=== PATIENT | female | born 1970 | race Caucasian/White ===

== ENCOUNTER 2016-10-01 13:39 | Inpatient (IN) | payer MEDICAID ==
[~2016-10-01] VITALS: Ht 167.6 cm; Wt 109.3 kg
[2016-10-01] MEDS ORDERED: LORAZEPAM 2MG/ML CPJ ONE (14:01)
[2016-10-01] MEDS ORDERED: LORAZEPAM 2MG/ML CPJ IV ONE (14:15)
[2016-10-01 15:52] LABS: BASOPHILS % 0.9 % (0.0-2.0); EOSINOPHILS % 1.2 % (0.0-5.0); HEMATOCRIT. 38.9 % (36.0-48.0); HEMOGLOBIN. 13.3 g/dL (12.0-16.0); LYMPHOCYTES % 24.9 % (20.0-50.0); MEAN CORPUSCULAR HEMOGLOBIN 31.4 pg (28.0-32.0); MEAN CORPUSCULAR HGB CONC 34.3 g/dL (31.0-37.0); MEAN CORPUSCULAR VOLUME 91.5 fL (81.0-99.0); MEAN PLATELET VOLUME 6.8 fl (7.4-10.4); MONOCYTES % 7.3 % (2.0-8.0); NEUTROPHILS % 65.7 % (40.0-76.0); PLATELET 199 x1000/uL (130-400); RED BLOOD CELL COUNT 4.25 mill/uL (4.2-5.4); WHITE BLOOD COUNT 6.3 x1000/uL (4.5-11.0)
[2016-10-01 16:03] LABS: ALANINE AMINOTRANSFERASE 40 IU/L (13-61); ALBUMIN 3.1 g/dL (3.4-5.0); ANION GAP 11; CARBON DIOXIDE 27 mEq/L (21-32); CHLORIDE 106 mEq/L (98-107); ETHANOL BLOOD < 10 mg/dL; INDEX HEMOLYSI 1 (1-3); INDEX ICTERIC 1 (1-4); INDEX LIPEMIC 1 (1-3); PHENYTOIN 1.6 ug/mL (10-20); UREA NITROGEN BLOOD 6 mg/dL (7-21); eGFR > 60 mL/min (>60)
[2016-10-01 16:06] LABS: VALPROIC ACID < 3.0 ug/mL (50-100)
[2016-10-01] MEDS ORDERED: ONDANSETRON HCL 4MG/2ML VIAL IV ONE (16:15)
[2016-10-01] MEDS ORDERED: MORPHINE SULFATE 4 MG/ML CPJ (NOT FOR IM USE) IV ONE (16:15)
[2016-10-01 16:31] LABS: CLARITY URINE CLEAR (CLEAR); COLOR URINE YELLOW (YELLOW); GLUCOSE URINE NEGATIVE (NEGATIVE); KETONES URINE NEGATIVE (NEGATIVE); LEUKOCYTE ESTERASE URINE NEGATIVE (NEGATIVE); NITRITE URINE NEGATIVE (NEGATIVE); OCCULT BLOOD URINE NEGATIVE (NEGATIVE); PH URINE 5.5 (4.5-8.0); PROTEIN URINE NEGATIVE (NEGATIVE); SPECIFIC GRAVITY URINE 1.011 (1.005-1.030)
[2016-10-01 16:52] LABS: *AMPHETAMINES SCREEN URINE NEGATIVE (NEGATIVE); *COCAINE SCREEN URINE NEGATIVE (NEGATIVE); CANNABINOID URINE SCREEN NEGATIVE (NEGATIVE); ECSTASY MDMA SCREEN URINE NEGATIVE (NEGATIVE); METHADONE URINE SCREEN NEGATIVE (NEGATIVE); OPIATES URINE SCREEN NEGATIVE (NEGATIVE); PHENCYCLIDINE URINE SCREEN NEGATIVE (NEGATIVE)
[2016-10-01 17:01] LABS: *BARBITURATES SCREEN URINE PRESUMTIVE POSITIVE (NEGATIVE); *BENZODIAZEPINES SCREEN URINE PRESUMTIVE POSITIVE (NEGATIVE)
[2016-10-01] MEDS ORDERED: MAGNESIUM/ALUMINUM HYDROXIDE/SIMETHICONE 30ML UDC PO PRN (18:00)
[2016-10-01] MEDS ORDERED: ONDANSETRON HCL 4MG/2ML VIAL IV PRN (18:00)
[2016-10-01] MEDS ORDERED: ACETAMINOPHEN 325MG TABLET PO PRN (18:00)
[2016-10-01] MEDS ORDERED: CLONIDINE 0.1MG TABLET PO PRN (18:00)
[2016-10-01] MEDS ORDERED: IPRATROPIUM/ALBUTEROL 0.5-3(2.5)MG/3ML NEB INH PRN (18:00)
[2016-10-01 18:49] LABS: CHLORIDE 106 mEq/L (98-107); INDEX HEMOLYSI 1 (1-3); INDEX ICTERIC 1 (1-4); INDEX LIPEMIC 1 (1-3)
[2016-10-01] MEDS: HYDROCODONE/ACETAMINOPHEN 5/325MG TABLET PO PRN ×2 (18:49→23:35)
[2016-10-01 18:54] LABS: ANION GAP 11; CALCIUM 8.6 mg/dL (8.5-10.1); CARBON DIOXIDE 27 mEq/L (21-32); UREA NITROGEN BLOOD 8 mg/dL (7-21); eGFR > 60 mL/min (>60)
[2016-10-01] MEDS ORDERED: PHENYTOIN SODIUM 1,000 MG in SODIUM CHLORIDE 0.9% 100 ML IV ONE (19:59)
[2016-10-01 22:14] LABS: CREATINE KINASE 41 IU/L (26-192); CREATINE KINASE MB FRACTION < 0.5 ng/mL (0.5-3.6); INDEX HEMOLYSI 2 (1-3); TROPONIN I < 0.02 ng/mL (0.00-0.04)
[2016-10-01] MEDS ORDERED: AMIT100T2 PO (22:46)
[2016-10-01] MEDS ORDERED: PHEN100C4 PO (22:46)
[2016-10-01] MEDS ORDERED: LACO100T2 PO (22:46)
[2016-10-01] MEDS ORDERED: LEVE1000 PO (22:46)
[2016-10-01] MEDS ORDERED: PHENOBARBITAL PO (22:46)
[2016-10-01] MEDS ORDERED: CLON1TAB PO (22:46)
[2016-10-01] MEDS ORDERED: AMIT150T PO (22:46)
[2016-10-01] MEDS ORDERED: QUET300T2 PO (22:46)
[2016-10-01] MEDS: LORAZEPAM 2MG/ML CPJ IV PRN (23:46)
[2016-10-02] VITALS (7 sets, daily range): BP systolic 110–161; BP diastolic 66–94
[2016-10-02] MEDS: LEVETIRACETAM 500MG TABLET PO SCH ×3 (00:10→21:25)
[2016-10-02] MEDS: CLONAZEPAM 1MG TABLET PO SCH ×3 (00:10→17:29)
[2016-10-02] MEDS: PHENOBARBITAL 30 MG TABLET PO SCH ×3 (00:11→21:25)
[2016-10-02] MEDS: LACOSAMIDE 200 MG TABLET (VIMPAT) PO SCH ×3 (01:21→17:29)
[2016-10-02] MEDS: QUETIAPINE FUMARATE 100MG TABLET PO SCH ×3 (01:21→21:29)
[2016-10-02] MEDS: HYDROCODONE/ACETAMINOPHEN 5/325MG TABLET PO PRN (05:03)
[2016-10-02 05:52] LABS: BASOPHILS % 0.6 % (0.0-2.0); EOSINOPHILS % 2.1 % (0.0-5.0); HEMATOCRIT. 36.3 % (36.0-48.0); HEMOGLOBIN. 12.6 g/dL (12.0-16.0); LYMPHOCYTES % 37.1 % (20.0-50.0); MEAN CORPUSCULAR HGB CONC 34.7 g/dL (31.0-37.0); MEAN CORPUSCULAR VOLUME 92.1 fL (81.0-99.0); MEAN PLATELET VOLUME 7.1 fl (7.4-10.4); MONOCYTES % 8.9 % (2.0-8.0); NEUTROPHILS % 51.3 % (40.0-76.0); PLATELET 187 x1000/uL (130-400); RED BLOOD CELL COUNT 3.95 mill/uL (4.2-5.4); WHITE BLOOD COUNT 4.8 x1000/uL (4.5-11.0)
[2016-10-02 06:27] LABS: CREATINE KINASE 27 IU/L (26-192); CREATINE KINASE MB FRACTION < 0.5 ng/mL (0.5-3.6); HDL CHOLESTEROL 31 mg/dL (40-59); INDEX HEMOLYSI 2 (1-3); INDEX ICTERIC 1 (1-4); INDEX LIPEMIC 1 (1-3); LDL CHOLESTEROL 39 mg/dL (5-100); TRIGLYCERIDE 422 mg/dL (0-150); TROPONIN I < 0.02 ng/mL (0.00-0.04)
[2016-10-02] MEDS: ENOXAPARIN 30MG/0.3ML SYR SUBCUT SCH ×2 (09:00→21:26)
[2016-10-02] MEDS ORDERED: PHENYTOIN SODIUM EXTENDED 100MG CAPSULE PO SCH (09:00)
[2016-10-02] MEDS: AMITRIPTYLINE 50MG TABLET PO SCH ×2 (10:16→21:25)
[2016-10-02 10:23] LABS: PHENOBARBITAL 11.1 ug/mL (15.0-40.0); PHENYTOIN 6.1 ug/mL (10-20)
[2016-10-02] MEDS ORDERED: PNEUMOCOCCAL 23-VAL P-SAC VAC 0.5 ML IM ONE (13:45)
[2016-10-02 19:14] LABS: HEPATITIS B SURFACE ANTIGEN NEGATIVE
[2016-10-02 19:42] LABS: HEPATITIS B CORE AB IGM NEGATIVE
[2016-10-02 19:44] LABS: HEPATITIS A AB IGM NEGATIVE (NEGATIVE)
[2016-10-02] MEDS: LORAZEPAM 2MG/ML CPJ IV PRN (19:55)
[2016-10-02 20:15] LABS: HEPATITIS C VIR.AB > 11.00 INDEXVAL (0.00-0.80)
[2016-10-02] MEDS: PHENYTOIN SODIUM EXTENDED 100MG CAPSULE PO SCH (21:23)
[2016-10-03] VITALS: BP 150/90
[2016-10-03] MEDS: NICOTINE 14MG PATCH TD SCH ×2 (00:29→23:00)
[2016-10-03 04:00] VITALS: BP 147/81
[2016-10-03 06:03] LABS: BASOPHILS % 0.8 % (0.0-2.0); HEMATOCRIT. 37.4 % (36.0-48.0); HEMOGLOBIN. 12.8 g/dL (12.0-16.0); LYMPHOCYTES % 36.9 % (20.0-50.0); MEAN CORPUSCULAR HEMOGLOBIN 31.5 pg (28.0-32.0); MEAN CORPUSCULAR HGB CONC 34.1 g/dL (31.0-37.0); MEAN CORPUSCULAR VOLUME 92.4 fL (81.0-99.0); MEAN PLATELET VOLUME 7.1 fl (7.4-10.4); MONOCYTES % 8.4 % (2.0-8.0); NEUTROPHILS % 51.9 % (40.0-76.0); PLATELET 188 x1000/uL (130-400); RED BLOOD CELL COUNT 4.05 mill/uL (4.2-5.4); RED CELL DISTRIBUTION WIDTH 13.8 % (11.6-14.6)
[2016-10-03 06:15] LABS: CHLORIDE 101 mEq/L (98-107); INDEX HEMOLYSI 2 (1-3); INDEX ICTERIC 1 (1-4); INDEX LIPEMIC 1 (1-3)
[2016-10-03 07:51] LABS: ANION GAP 16; CALCIUM 8.1 mg/dL (8.5-10.1); CARBON DIOXIDE 26 mEq/L (21-32); UREA NITROGEN BLOOD 9 mg/dL (7-21); eGFR > 60 mL/min (>60)
[2016-10-03 07:58] LABS: PHENYTOIN 3.7 ug/mL (10-20)
[2016-10-03 08:00] VITALS: BP 152/125
[2016-10-03] MEDS: AMITRIPTYLINE 50MG TABLET PO SCH ×2 (08:46→20:23)
[2016-10-03] MEDS: QUETIAPINE FUMARATE 100MG TABLET PO SCH ×2 (08:46→20:23)
[2016-10-03] MEDS: PHENOBARBITAL 30 MG TABLET PO SCH ×2 (08:47→20:23)
[2016-10-03] MEDS: LACOSAMIDE 200 MG TABLET (VIMPAT) PO SCH ×2 (08:47→16:36)
[2016-10-03] MEDS: LEVETIRACETAM 500MG TABLET PO SCH ×2 (08:47→20:24)
[2016-10-03] MEDS: CLONAZEPAM 1MG TABLET PO SCH ×2 (08:47→16:36)
[2016-10-03] MEDS: ENOXAPARIN 30MG/0.3ML SYR SUBCUT SCH ×2 (08:48→20:25)
[2016-10-03 12:00] VITALS: BP 136/85
[2016-10-03] MEDS ORDERED: PHENYTOIN SODIUM 500 MG in SODIUM CHLORIDE 0.9% 50 ML IV NR (13:00)
[2016-10-03 16:00] VITALS: BP 127/84
[2016-10-03 20:00] VITALS: BP 147/96
[2016-10-03] MEDS: PHENYTOIN SODIUM EXTENDED 100MG CAPSULE PO SCH (20:24)
[2016-10-03] MEDS: HYDROCODONE/ACETAMINOPHEN 5/325MG TABLET PO PRN (20:25)
[2016-10-04] VITALS: BP 120/78
[2016-10-04] MEDS ORDERED: LORAZEPAM 2MG/ML CPJ IV PRN (02:00)
[2016-10-04 04:00] VITALS: BP 116/80
[2016-10-04 07:58] LABS: BASOPHILS % 0.7 % (0.0-2.0); EOSINOPHILS % 1.9 % (0.0-5.0); HEMATOCRIT. 39.7 % (36.0-48.0); HEMOGLOBIN. 13.6 g/dL (12.0-16.0); LYMPHOCYTES % 35.2 % (20.0-50.0); MEAN CORPUSCULAR HEMOGLOBIN 31.8 pg (28.0-32.0); MEAN CORPUSCULAR HGB CONC 34.3 g/dL (31.0-37.0); MEAN CORPUSCULAR VOLUME 92.7 fL (81.0-99.0); MEAN PLATELET VOLUME 7.2 fl (7.4-10.4); MONOCYTES % 9.3 % (2.0-8.0); NEUTROPHILS % 52.9 % (40.0-76.0); PLATELET 182 x1000/uL (130-400); RED BLOOD CELL COUNT 4.29 mill/uL (4.2-5.4); RED CELL DISTRIBUTION WIDTH 13.8 % (11.6-14.6); WHITE BLOOD COUNT 4.5 x1000/uL (4.5-11.0)
[2016-10-04 08:00] VITALS: BP 110/82
[2016-10-04] MEDS: LACOSAMIDE 200 MG TABLET (VIMPAT) PO SCH ×2 (08:44→16:21)
[2016-10-04 08:45] LABS: ANION GAP 12; CARBON DIOXIDE 29 mEq/L (21-32); CHLORIDE 100 mEq/L (98-107); INDEX HEMOLYSI 1 (1-3); INDEX ICTERIC 1 (1-4); INDEX LIPEMIC 1 (1-3); PHENYTOIN 6.3 ug/mL (10-20); UREA NITROGEN BLOOD 9 mg/dL (7-21); eGFR > 60 mL/min (>60)
[2016-10-04] MEDS: LEVETIRACETAM 500MG TABLET PO SCH ×2 (08:45→21:54)
[2016-10-04] MEDS: PHENOBARBITAL 30 MG TABLET PO SCH ×2 (08:45→21:54)
[2016-10-04] MEDS: QUETIAPINE FUMARATE 100MG TABLET PO SCH ×2 (08:46→21:54)
[2016-10-04] MEDS: AMITRIPTYLINE 50MG TABLET PO SCH ×2 (08:46→21:53)
[2016-10-04] MEDS: ENOXAPARIN 30MG/0.3ML SYR SUBCUT SCH ×2 (08:47→21:52)
[2016-10-04] MEDS: HYDROCODONE/ACETAMINOPHEN 5/325MG TABLET PO PRN (08:55)
[2016-10-04] MEDS ORDERED: CLONAZEPAM 1MG TABLET PO SCH (09:00)
[2016-10-04] MEDS ORDERED: PHENYTOIN SODIUM EXTENDED 100MG CAPSULE PO NR (11:45)
[2016-10-04 12:04] VITALS: BP 119/81
[2016-10-04 16:00] VITALS: BP 137/82
[2016-10-04 20:00] VITALS: BP 145/84
[2016-10-04] MEDS: PHENYTOIN SODIUM EXTENDED 100MG CAPSULE PO SCH (21:54)
[2016-10-04] MEDS: NICOTINE 14MG PATCH TD SCH (23:00)
[2016-10-05] VITALS: BP 141/96
[2016-10-05 04:00] VITALS: BP 103/73
[2016-10-05 08:00] VITALS: BP 98/70
[2016-10-05] MEDS ORDERED: PHENYTOIN SODIUM 800 MG in SODIUM CHLORIDE 0.9% 100 ML IV SCH (08:30)
[2016-10-05] MEDS: AMITRIPTYLINE 50MG TABLET PO SCH ×2 (09:51→22:01)
[2016-10-05] MEDS: QUETIAPINE FUMARATE 100MG TABLET PO SCH ×2 (09:51→22:00)
[2016-10-05] MEDS: LACOSAMIDE 200 MG TABLET (VIMPAT) PO SCH ×2 (09:51→16:41)
[2016-10-05] MEDS: LEVETIRACETAM 500MG TABLET PO SCH ×2 (09:51→20:35)
[2016-10-05] MEDS: PHENOBARBITAL 30 MG TABLET PO SCH ×2 (09:51→20:35)
[2016-10-05] MEDS: ENOXAPARIN 30MG/0.3ML SYR SUBCUT SCH ×2 (09:52→20:34)
[2016-10-05 12:00] VITALS: BP 91/58
[2016-10-05 16:00] VITALS: BP 102/72
[2016-10-05 20:00] VITALS: BP 106/88
[2016-10-05] MEDS: PHENYTOIN SODIUM EXTENDED 100MG CAPSULE PO SCH (20:35)
[2016-10-05] MEDS: HYDROCODONE/ACETAMINOPHEN 5/325MG TABLET PO PRN (22:03)
[2016-10-05] MEDS: NICOTINE 14MG PATCH TD SCH ×2 (23:00→23:38)
[2016-10-06] VITALS: BP 83/61
[2016-10-06 04:00] VITALS: BP 87/58
[2016-10-06 08:00] VITALS: BP 121/92
[2016-10-06 09:17] LABS: EOSINOPHILS % 1.7 % (0.0-5.0); HEMOGLOBIN. 14.5 g/dL (12.0-16.0); LYMPHOCYTES % 32.4 % (20.0-50.0); MEAN CORPUSCULAR HEMOGLOBIN 31.9 pg (28.0-32.0); MEAN CORPUSCULAR HGB CONC 34.5 g/dL (31.0-37.0); MEAN CORPUSCULAR VOLUME 92.3 fL (81.0-99.0); MEAN PLATELET VOLUME 7.2 fl (7.4-10.4); MONOCYTES % 7.4 % (2.0-8.0); NEUTROPHILS % 57.5 % (40.0-76.0); PLATELET 206 x1000/uL (130-400); RED BLOOD CELL COUNT 4.55 mill/uL (4.2-5.4); RED CELL DISTRIBUTION WIDTH 13.5 % (11.6-14.6); WHITE BLOOD COUNT 5.4 x1000/uL (4.5-11.0)
[2016-10-06] MEDS: ENOXAPARIN 30MG/0.3ML SYR SUBCUT SCH ×2 (09:35→23:02)
[2016-10-06] MEDS: PHENOBARBITAL 30 MG TABLET PO SCH ×2 (09:36→23:01)
[2016-10-06] MEDS: LACOSAMIDE 200 MG TABLET (VIMPAT) PO SCH ×2 (09:36→17:23)
[2016-10-06] MEDS: LEVETIRACETAM 500MG TABLET PO SCH ×2 (09:36→22:59)
[2016-10-06] MEDS: AMITRIPTYLINE 50MG TABLET PO SCH ×2 (09:36→23:01)
[2016-10-06 09:41] LABS: ANION GAP 15; CALCIUM 9.1 mg/dL (8.5-10.1); CARBON DIOXIDE 28 mEq/L (21-32); CHLORIDE 99 mEq/L (98-107); INDEX HEMOLYSI 1 (1-3); INDEX ICTERIC 1 (1-4); INDEX LIPEMIC 1 (1-3); PHENYTOIN 6.2 ug/mL (10-20); UREA NITROGEN BLOOD 15 mg/dL (7-21); eGFR > 60 mL/min (>60)
[2016-10-06] MEDS: QUETIAPINE FUMARATE 100MG TABLET PO SCH ×2 (09:41→23:00)
[2016-10-06] MEDS ORDERED: PHENYTOIN SODIUM 700 MG in SODIUM CHLORIDE 0.9% 100 ML IV NR (10:30)
[2016-10-06 17:14] VITALS: BP 114/89
[2016-10-06 20:00] VITALS: BP 138/91
[2016-10-06] MEDS: NICOTINE 14MG PATCH TD SCH (23:00)
[2016-10-06] MEDS: PHENYTOIN SODIUM EXTENDED 100MG CAPSULE PO SCH (23:02)
[2016-10-07] VITALS: BP 119/70
[2016-10-07 04:00] VITALS: BP 135/77
[2016-10-07 08:00] VITALS: BP 99/68
[2016-10-07] MEDS: QUETIAPINE FUMARATE 100MG TABLET PO SCH (11:12)
[2016-10-07] MEDS: LEVETIRACETAM 500MG TABLET PO SCH (11:12)
[2016-10-07] MEDS: LACOSAMIDE 200 MG TABLET (VIMPAT) PO SCH (11:12)
[2016-10-07] MEDS: AMITRIPTYLINE 50MG TABLET PO SCH (11:12)
[2016-10-07] MEDS: ENOXAPARIN 30MG/0.3ML SYR SUBCUT SCH (11:13)
[2016-10-07 12:15] VITALS: BP 101/68
[2016-10-07 14:21] VITALS: BP 99/68
== END 2016-10-07 15:40 | disposition home or self-care (01) | DRG 53 ==
LOC: ER 14:03 → 5WST 17:55
PROVIDERS: ADMIT Internal Medicine; ATTEND Internal Medicine
PROC: 02HV33Z Insertion of Infusion Device into Superior Vena Cava, Percutaneous Approach (ICD-10-PCS; principal; 2016-10-06)
PROC: B5181ZA Fluoroscopy of Superior Vena Cava using Low Osmolar Contrast, Guidance (ICD-10-PCS; 2016-10-06)
PROC: B548ZZA Ultrasonography of Superior Vena Cava, Guidance (ICD-10-PCS; 2016-10-06)
DX: G40.909 Epilepsy, unspecified, not intractable, without status epilepticus (principal); I10 Essential (primary) hypertension; B19.20 Unspecified viral hepatitis C without hepatic coma; E78.1 Pure hyperglyceridemia; Z96.89 Presence of other specified functional implants; F31.9 Bipolar disorder, unspecified; D72.819 Decreased white blood cell count, unspecified; F17.210 Nicotine dependence, cigarettes, uncomplicated; F43.10 Post-traumatic stress disorder, unspecified; Z91.14 Patient's other noncompliance with medication regimen; Z79.899 Other long term (current) drug therapy
CPT/HCPCS: 36415; 36569; 70450; 76937; 77001; 80048; 80053; 80061; 80165; 80184; 80185; 80305; 80339; 81003; 82542; 82550; 82553; 84443; 84484; 85025; 86705; 86709; 86803; 87340; 90732; 93005; 93970; 96374; 96375; 99285; C1725; C1769; C1893; G0482; J1165; J1650; J2060; J2270; J2405; J7050; J7620